=== PATIENT | male | born 1945 | race Caucasian/White ===

== ENCOUNTER 2016-08-01 10:50 | Emergency (ER) | payer OTHER ==
[~2016-08-01] VITALS: Ht 177.8 cm; Wt 122.7 kg
[2016-08-01 11:01] VITALS: TEMP 36.5; Ht 177.8 cm; Wt 122.7 kg
[2016-08-01] MEDS ORDERED: ALBUT/IPRATROP 3MG/0.5MG NEB 3 ML VIAL INH STA (11:13)
[2016-08-01] MEDS ORDERED: METHYLPREDNISOLONE 125 MG VIAL IV STA (11:13)
--- NOTE | 2016-08-01 11:33 | DIAGNOSTIC IMAGING REPORT ---
CHEST ONE VIEW PORTABLE CLINICAL HISTORY: dyspnea COMPARISON STUDY: No previous studies for comparison. FINDINGS: Mild cardiomegaly status post median sternotomy. Lungs are clear. Diaphragms smooth. IMPRESSION: Myocardial megaly. Otherwise negative study Electronically signed by: Brett Cole M.D. 08/01/2016 11:32 AM Dictated Date/Time: 08/01/2016 11:30 AM
--- NOTE | 2016-08-01 11:44 | EMERGENCY ROOM VISIT NOTE ---
History Report prepared by Estevan: Dominga Bedolla Under the Supervision of: Dr. Riley Altamirano M.D. First contact with patient: 11:08 Chief Complaint: CONGESTION Stated Complaint: COLD Nursing Triage Summary: Triage note: pt reports head and chest congestion and shortness of breath for the past 3-4 weeks. Pt reports cough with yellow sputum. pt reports fever and chills. pt reports "i wheeze and what not." pt reports dizziness and nausea upon standing at times. pt reports "my chest hurts all the time for the past 15 years." pt reports "i saw my family dr and they told me i don't have the flu." History of Present Illness The patient is a 71 year old male who presents to the Emergency Room with complaints of a persistent cough starting about 3-4 weeks ago. He also complains of wheezing and some difficulty breathing. He has been having cold- like symptoms for the past 3-4 weeks. The patient increased his oxygen at home from 2 L to 3.5 L without relief. He has a history of COPD. He denies any recent steroids. He had recent contact with someone with RSV. He denies any chest pain, nausea, vomiting, or any other complaints. Source of History: patient Onset: about 3-4 weeks ago Position: other (global) Quality: other (cough) Timing: other (persistent) Associated Symptoms: + SOB, No chest pain, No nausea, No vomiting Review of Systems See HPI for pertinent positives & negatives. A total of 10 systems reviewed and were otherwise negative. Past Medical & Surgical Medical Problems: (1) COPD (chronic obstructive pulmonary disease) (2) Lung disease Family History Patient reports no known family medical history. Social History Smoking Status: Never Smoker Marital Status: Occupation Status: retired Current/Historical Medications Scheduled Albuterol Hfa (Ventolin Hfa), 1 PUFFS INH Q4H Carvedilol (Coreg), 25 MG PO BID Clopidogrel Bisulfate (Plavix), 75 MG PO DAILY Esomeprazole Magnesium (Nexium), 40 MG PO DAILY Finasteride (Proscar), 5 MG PO DAILY Furosemide (Lasix), 40 MG PO DAILY Insulin Isophan/Regular (Novolin 70/30), 40 UNITS SC AMPM Insulin Isophan/Regular (Novolin 70/30), 20 UNITS SC DAILY@1200 Ipratropium-Albuterol (Combivent Respimat), 1 PUFFS INH QID Menthol/Methyl Salicylate (Myoflex), 1 APPLN TOP QID Nitroglycerin (Nitrostat), 0.4 MG UT PRN Nitroglycerin (Nitroglycerin), 1 PATCH TOP DAILY Potassium (Potassium), 1 TAB PO DAILY Pravastatin Sodium (Pravastatin Sodium), 1 TAB PO HS Prednisone (Prednisone), 0 PO DAILY Tamsulosin Hcl (Flomax), 0.4 MG PO PM Temazepam (Restoril), 15 MG PO HS Scheduled PRN Artificial Tear Solution (Artificial Tears), 1 DROPS OPB DAILY PRN for DRYNESS Hydrocodone-Acetaminophen (LORTAB 10-325 mg), 1 TAB PO Q8 PRN for Pain Ibuprofen Tab (Motrin), 800 MG PO Q8H PRN for Pain Ipratropium-Albuterol (Duoneb), 1 TREATMENT INH Q6H PRN for Shortness of Breath Allergies Coded Allergies: Aspirin (Verified Adverse Reaction, Unknown, unknown, 08/01/16) Gabapentin (Verified Adverse Reaction, Unknown, unknown, 08/01/16) Lisinopril (Verified Adverse Reaction, Unknown, unknown, 08/01/16) Methocarbamol (Verified Adverse Reaction, Unknown, unknown, 08/01/16) Warfarin (Verified Adverse Reaction, Unknown, unknown, 08/01/16) Physical Exam Vital Signs Date Time Temp Pulse Resp B/P Pulse Ox O2 Delivery O2 Flow Rate FiO2 08/01/16 14:32 93 20 153/101 91 Room Air 08/01/16 12:45 75 20 131/79 93 Room Air 08/01/16 12:10 72 08/01/16 11:01 36.5 87 22 160/64 93 Room Air Physical Exam CONSTITUTIONAL: Moderate respiratory distress HEENT: No icterus, moist mucous membranes NECK: No meningismus, trachea is midline. CARDIOVASCULAR: Regular rate, normal perfusion RESPIRATORY: Moderate wheezing bilaterally. GASTROINTESTINAL: Non-tender GENITOURINARY: No flank tenderness MUSCULOSKELETAL: Full range of motion NEUROLOGIC: No acute gross focal deficits. PSYCHIATRIC: Normal affect SKIN: Normal for ethnicity. Medical Decision & Procedures ER Provider Diagnostic Interpretation: X-ray results as stated below per interpretation by me and the radiologist. CHEST ONE VIEW PORTABLE CLINICAL HISTORY: dyspnea COMPARISON STUDY: No previous studies for comparison. FINDINGS: Mild cardiomegaly status post median sternotomy. Lungs are clear. Diaphragms smooth. IMPRESSION: Myocardial megaly. Otherwise negative study Electronically signed by: Brett Cole M.D. 08/01/2016 11:32 AM Dictated Date/Time: 08/01/2016 11:30 AM Laboratory Results 08/01/16 11:40 Red Blood Count 3.93, Mean Corpuscular Volume 81.9, Mean Corpuscular Hemoglobin 26.0, Mean Corpuscular Hemoglobin Concent 31.7, Mean Platelet Volume 9.8, Neutrophils (%) (Auto) 70.9, Lymphocytes (%) (Auto) 11.8, Monocytes (%) (Auto) 11.1, Eosinophils (%) (Auto) 5.7, Basophils (%) (Auto) 0.3, Neutrophils # (Auto ) 4.08, Lymphocytes # (Auto) 0.68, Monocytes # (Auto) 0.64, Eosinophils # (Auto ) 0.33, Basophils # (Auto) 0.02 08/01/16 11:40 Test 08/01/16 11:40 White Blood Count 5.76 K/uL (4.8-10.8) Red Blood Count 3.93 M/uL (4.7-6.1) Hemoglobin 10.2 g/dL (14.0-18.0) Hematocrit 32.2 % (42-52) Mean Corpuscular Volume 81.9 fL (80-100) Mean Corpuscular Hemoglobin 26.0 pg (25-34) Mean Corpuscular Hemoglobin Concent 31.7 g/dl (32-36) Platelet Count 166 K/uL (130-400) Mean Platelet Volume 9.8 fL (7.4-10.4) Neutrophils (%) (Auto) 70.9 % Lymphocytes (%) (Auto) 11.8 % Monocytes (%) (Auto) 11.1 % Eosinophils (%) (Auto) 5.7 % Basophils (%) (Auto) 0.3 % Neutrophils # (Auto) 4.08 K/uL (1.4-6.5) Lymphocytes # (Auto) 0.68 K/uL (1.2-3.4) Monocytes # (Auto) 0.64 K/uL (0.11-0.59) Eosinophils # (Auto) 0.33 K/uL (0-0.5) Basophils # (Auto) 0.02 K/uL (0-0.2) RDW Standard Deviation 56.1 fL (36.4-46.3) RDW Coefficient of Variation 18.7 % (11.5-14.5) Immature Granulocyte % (Auto) 0.2 % Immature Granulocyte # (Auto) 0.01 K/uL (0.00-0.02) Anion Gap 11.0 mmol/L (3-11) Est Creatinine Clear Calc Drug Dose 39.9 ml/min Estimated GFR () 33.4 Estimated GFR (Non- 28.9 BUN/Creatinine Ratio 14.4 (10-20) Calcium Level 8.9 mg/dl (8.5-10.1) Troponin I 0.018 ng/ml (0-0.045) Pro-B-Type Natriuretic Peptide 1130 pg/ml (0-900) Labs reviewed by ED physician. Medications Administered Medications (Trade) Dose Ordered Sig/Can Route Start Time Stop Time Status Last Admin Dose Admin Albuterol/ Ipratropium (Duoneb) 6 ml QIDR STAT INH 08/01/16 11:13 08/01/16 11:15 DC 08/01/16 11:38 6 ML Methylprednisolone Sodium Succinate (Solu-Medrol IV) 125 mg NOW STAT IV 08/01/16 11:13 08/01/16 11:15 DC 08/01/16 11:39 125 MG ECG Indication: SOB/dyspnea Rate (beats per minute): 82 Rhythm: other (Narrow complex) Findings: nonspecific-ST abn, other (Artifact; normal axis) ED Course 1108: Past medical records reviewed. The patient was evaluated in room C07. A complete history and physical examination was performed. 1113: Solu-Medrol IV 125 mg IV, DuoNeb 6 ml INH 1456: Upon reexamination the patient is feeling better. I discussed results and treatment plan with the patient. I also discussed renal function and the importance of follow up. [employer]ne[employer] will help arrange follow up with PCP. He verbalizes agreement and understanding. The patient is ready for discharge. Medical Decision Differential diagnosis includes but is not limited to COPD, viral syndrome, pneumonia, wheezing. 71-year-old with history of COPD presented to the emergency room for evaluation of worsening cough and shortness of breath. His home O2 demand vacation 2 L nasal cannula to 3 L nasal cannula over the last few days. He is noted to have marked wheezing bilaterally. He improved after nebulizer treatments and steroids. Renal function noted to be concerning and patient is unaware of baseline. Patient feels better on reexamination and very clearly wants to go home. Impression Primary Impression: COPD exacerbation Scribe Attestation The scribe's documentation has been prepared under my direction and personally reviewed by me in its entirety. I confirm that the note above accurately reflects all work, treatment, procedures, and medical decision making performed by me. Departure Information Dispostion Home / Self-Care Prescriptions Prednisone (Prednisone) 20 Mg Tab 0 PO DAILY, #14 TAB 3 TABS DAILY FOR 2 DAYS, THEN 2 TABS DAILY FOR 2 DAYS, THEN 1 TAB DAILY FOR 2 DAYS, THEN 1/2 TAB DAILY FOR 2 DAYS. Prov: Riley Altamirano MD 08/01/16 Referrals Evelia Pedro M.D. (PCP) Forms HOME CARE DOCUMENTATION FORM, IMPORTANT VISIT INFORMATION Patient Instructions COPD - [facility], My [facility]
[2016-08-01 11:51] LABS: BASO % 0.3 %; BASO ABS # 0.02 K/uL (0-0.2); COMPLETE YES; EOS % 5.7 %; HEMATOCRIT 32.2 % (42-52); IG% 0.2 %; LYMPH % 11.8 %; LYMPH ABS # 0.68 K/uL (1.2-3.4); MEAN CELL VOLUME 81.9 fL (80-100); MEAN CORPUSCULAR HGB CONC 31.7 g/dl (32-36); MEAN PLATELET VOLUME 9.8 fL (7.4-10.4); MONO % 11.1 %; NEUT % 70.9 %; PLATELET COUNT 166 K/uL (130-400); RED BLOOD COUNT 3.93 M/uL (4.7-6.1); WHITE BLOOD COUNT 5.76 K/uL (4.8-10.8)
[2016-08-01 12:07] LABS: BUN/CREATININE RATIO 14.4 (10-20); CALCIUM 8.9 mg/dl (8.5-10.1); CREATININE 2.2 mg/dl (0.60-1.40); POTASSIUM 3.7 mmol/L (3.5-5.1)
[2016-08-01] MEDS ORDERED: TAMS0.4C38 PO (12:12)
[2016-08-01] MEDS ORDERED: IBUP-1451 PO (12:12)
[2016-08-01] MEDS ORDERED: INSU70IN2 SC ×2 (12:12)
[2016-08-01] MEDS ORDERED: TEMA-79 PO (12:12)
[2016-08-01] MEDS ORDERED: CARV25TA PO (12:12)
[2016-08-01] MEDS ORDERED: IPRA1AER2 INH (12:12)
[2016-08-01] MEDS ORDERED: ARTISOL12 OPB (12:12)
[2016-08-01] MEDS ORDERED: FINA5TAB4 PO (12:12)
[2016-08-01] MEDS ORDERED: IPRASOL4 INH (12:12)
[2016-08-01] MEDS ORDERED: FURO40TA3 PO (12:12)
[2016-08-01] MEDS ORDERED: ESCI1TAB18 PO (12:12)
[2016-08-01] MEDS ORDERED: NTRGSL/4 UT (12:12)
[2016-08-01] MEDS ORDERED: VNTHFA/IN INH (12:12)
[2016-08-01] MEDS ORDERED: HYDR-4332 PO (12:12)
[2016-08-01] MEDS ORDERED: CLOP1TAB5 PO (12:12)
[2016-08-01] MEDS ORDERED: NXM/40 PO (12:12)
[2016-08-01] MEDS ORDERED: PRAV40TA2 PO (12:12)
[2016-08-01] MEDS ORDERED: NITR0.4D6 TOP (12:12)
[2016-08-01] MEDS ORDERED: [UNRECOGNIZED DRUG - CODE] TOP (12:12)
[2016-08-01] MEDS ORDERED: POTA99TA PO (12:29)
[2016-08-01 14:32] VITALS: BP 153/101; PULSE 93; O2SAT 91
[2016-08-01] MEDS ORDERED: PRED20TA PO (14:55)
== END 2016-08-01 15:00 | disposition home or self-care (01) ==
LOC: C.EDB 10:54 → C.EDC 15:00
DX: J44.1 Chronic obstructive pulmonary disease with (acute) exacerbation (principal); Z79.4 Long term (current) use of insulin

== ENCOUNTER 2016-10-18 13:20 | Inpatient (IN) | payer OTHER ==
[~2016-10-18] VITALS: Ht 179.1 cm; Wt 111.7 kg
[~2016-10-18 13:20] MED LIST: ARTISOL12 OPB; CARV25TA PO; CLOP1TAB5 PO; FINA5TAB4 PO; FURO40TA3 PO; HYDR-4332 PO; IBUP-1451 PO; INSU70IN2 SC; IPRA1AER2 INH; IPRASOL4 INH; NITR0.4D6 TOP; NTRGSL/4 UT; NXM/40 PO; POTA99TA PO; PRAV40TA2 PO; PRED20TA PO; TAMS0.4C38 PO; TEMA-79 PO; VNTHFA/IN INH; [UNRECOGNIZED DRUG - CODE] TOP
[2016-10-18] MEDS ORDERED: ALBUT/IPRATROP 3MG/0.5MG NEB 3 ML VIAL INH STA (13:42)
[2016-10-18 14:01] LABS: BASO % 0.2 %; BASO ABS # 0.01 K/uL (0-0.2); COMPLETE YES; EOS % 2.1 %; HEMATOCRIT 32.1 % (42-52); LYMPH % 13.7 %; LYMPH ABS # 0.65 K/uL (1.2-3.4); MEAN CELL VOLUME 84.5 fL (80-100); MEAN CORPUSCULAR HEMOGLOBIN 26.3 pg (25-34); MEAN CORPUSCULAR HGB CONC 31.2 g/dl (32-36); MEAN PLATELET VOLUME 9.9 fL (7.4-10.4); PLATELET COUNT 145 K/uL (130-400); WHITE BLOOD COUNT 4.74 K/uL (4.8-10.8)
--- NOTE | 2016-10-18 14:07 | DIAGNOSTIC IMAGING REPORT ---
CHEST ONE VIEW PORTABLE HISTORY: Short of breath. COMPARISON: Chest 08/01/2016. FINDINGS: Stable mild cardiomegaly. Poststernotomy changes. 5 mm nodular density within the right lower lobe remains unchanged. This favors a calcified granuloma. Otherwise, the lungs are clear. No pleural effusions. No pneumothorax. IMPRESSION: No significant change compared to the prior study. No acute process. Stable mild cardiomegaly. Electronically signed by: Christian Hernandez M.D. 10/18/2016 2:05 PM Dictated Date/Time: 10/18/2016 2:04 PM
[2016-10-18 14:16] LABS: INR 1.2 (0.9-1.1)
[2016-10-18 14:24] LABS: BUN/CREATININE RATIO 9.9 (10-20); CREATININE 1.6 mg/dl (0.60-1.40); POTASSIUM 3.3 mmol/L (3.5-5.1)
[2016-10-18] MEDS ORDERED: ONDANSETRON INJ 2 MG/ML 2 ML VIAL IV PRN (17:30)
[2016-10-18] MEDS ORDERED: NITROGLYCERIN 0.4 MG SL PER TAB CHARGE SL PRN (17:30)
[2016-10-18] MEDS ORDERED: ENOXAPARIN 40 MG/0.4 ML SYR SC SCH (17:30)
[2016-10-18] MEDS ORDERED: ACETAMINOPHEN 325 MG TAB PO PRN (17:30)
[2016-10-18] MEDS ORDERED: PNEUMOCOCCAL POLYSACCHARIDES 25 MCG/0.5 ML VIAL/SYR IM. ONE (17:30)
[2016-10-18] MEDS ORDERED: POTASSIUM CHLORIDE 10 MEQ TABCR PO STA (17:43)
[2016-10-18] MEDS ORDERED: HYDROCODONE/ACETAMI 10/325 TAB PO PRN (17:45)
[2016-10-18] MEDS ORDERED: IBUPROFEN 800 MG TAB PO PRN (17:45)
[2016-10-18] MEDS ORDERED: INSULIN HUMAN 70% NPH/30% REGULAR SC SCH (18:00)
[2016-10-18] MEDS ORDERED: POTASSIUM CHLORIDE 10 MEQ TABCR ONE (18:05)
--- NOTE | 2016-10-18 18:13 | History and Physical ---
History & Physical Date & Time of Service: Oct 18, 2016 at 17:10 Chief Complaint: Stomach Filling W/Fluid, Bloated Primary Care Physician: Evelia Pedro M.D. History of Present Illness Source: patient 71 year old male w/ a PMH of cirrhosis, CAD (SD and 2bypass and 3 stents), COPD (4L) at home, Afib (rate controlled), DMT2, HLD, HTN and CKD presented to [facility] on 10/18/2016 with increased abdominal bloating and 20 pound weight gain of 10 days duration. The abdominal swelling started 10 days ago and he has put on 20 pounds in the last 10 days. He has a history of ascites with the last paracentesis being 2 months ago. He feels bloated and he feels short of breath. He said that he also has had worsening in the swelling of his legs which has been improving as his sits with his legs elevated. Along with the abdominal swelling he has had a 2-3 month history of worsening abdominal pain, it is located along the left side of his abdomen and there is nothing that makes it better or makes it worse. He rates this pain as an 8/10 in severity. Associated symptoms include: nausea, shortness of breath and leg swelling, as well as chest pain (central, non radiating, occurs randomly at different times of the day and rates it as a 6/10 in severity. and palpitations Denies any vomiting, fevers, night sweats, chills, cough, leg pain, headaches, diarrhea, constipation Past Medical/Surgical History Medical Problems: (1) COPD (chronic obstructive pulmonary disease) Status: Chronic (2) Heart disease Status: Chronic (2 bypass's, 3 stents and 1 SD) (3) Lung disease Status: Chronic Atrial fibrillation DMT2 HLD HTN Cirrhosis CKD Family History Patient reports no known family medical history. Mother had SD Father had emphysema Sisters have Cancer Brother had SD Social History Smoking Status: Former Smoker (60-90 pack year) Marital Status: Occupational Status: retired Immunizations History of Influenza Vaccine: Unknown Multi-Drug Resistant Organisms History of MDRO: No Allergies Coded Allergies: Aspirin (Verified Adverse Reaction, Unknown, unknown, 10/18/16) Gabapentin (Verified Adverse Reaction, Unknown, unknown, 10/18/16) Lisinopril (Verified Adverse Reaction, Unknown, unknown, 10/18/16) Methocarbamol (Verified Adverse Reaction, Unknown, unknown, 10/18/16) Warfarin (Verified Adverse Reaction, Unknown, unknown, 10/18/16) Home Medications Scheduled Albuterol Hfa (Ventolin Hfa), 1 PUFFS INH Q4H Carvedilol (Coreg), 25 MG PO BID Clopidogrel Bisulfate (Plavix), 75 MG PO DAILY Esomeprazole Magnesium (Nexium), 40 MG PO DAILY Finasteride (Proscar), 5 MG PO DAILY Furosemide (Lasix), 40 MG PO DAILY Insulin Isophan/Regular (Novolin 70/30), 40 UNITS SC AMPM Insulin Isophan/Regular (Novolin 70/30), 20 UNITS SC DAILY@1200 Ipratropium-Albuterol (Combivent Respimat), 1 PUFFS INH QID Menthol/Methyl Salicylate (Myoflex), 1 APPLN TOP QID Nitroglycerin (Nitrostat), 0.4 MG UT PRN Nitroglycerin (Nitroglycerin), 1 PATCH TOP DAILY Potassium (Potassium), 1 TAB PO DAILY Pravastatin Sodium (Pravastatin Sodium), 1 TAB PO HS Tamsulosin Hcl (Flomax), 0.4 MG PO PM Temazepam (Restoril), 15 MG PO HS Scheduled PRN Artificial Tear Solution (Artificial Tears), 1 DROPS OPB DAILY PRN for DRYNESS Hydrocodone-Acetaminophen (LORTAB 10-325 mg), 1 TAB PO Q8 PRN for Pain Ibuprofen Tab (Motrin), 800 MG PO Q8H PRN for Pain Ipratropium-Albuterol (Duoneb), 1 TREATMENT INH Q6H PRN for Shortness of Breath Review of Systems please see HPI for review of systems Constitutional: + fatigue Physical Exam Vital Signs Date Time Temp Pulse Resp B/P Pulse Ox O2 Delivery O2 Flow Rate FiO2 10/18/16 16:32 76 18 150/88 92 Nasal Cannula 2.0 10/18/16 14:55 76 24 118/84 94 Nasal Cannula 2.0 10/18/16 14:37 81 10/18/16 14:10 Nasal Cannula 2.0 10/18/16 13:23 36.4 89 20 149/79 96 Room Air General Appearance: WD/WN, no apparent distress, + obese Respiratory/Chest: chest non-tender, no respiratory distress, no accessory muscle use, + rhonchi (bilateral rhonchi), + wheezing (bilateral wheeze) Cardiovascular: no JVD, no murmur, normal peripheral pulses, + irregularly irregular, + pertinent finding (muffled distant heart sounds) Abdomen/GI: normal bowel sounds, + tenderness (tenderness to palpation throughout abdomen), + distended (grossly) Extremities/Musculoskelatal: normal inspection, normal capillary refill, no pedal edema Neurologic/Psych: alert, normal mood/affect, oriented x 3 Diagnostics Laboratory Results Results Past 24 Hours Test 10/18/16 13:50 Range/Units White Blood Count 4.74 4.8-10.8 K/uL Red Blood Count 3.80 4.7-6.1 M/uL Hemoglobin 10.0 14.0-18.0 g/dL Hematocrit 32.1 42-52 % Mean Corpuscular Volume 84.5 80-100 fL Mean Corpuscular Hemoglobin 26.3 25-34 pg Mean Corpuscular Hemoglobin Concent 31.2 32-36 g/dl Platelet Count 145 130-400 K/uL Mean Platelet Volume 9.9 7.4-10.4 fL Neutrophils (%) (Auto) 73.0 % Lymphocytes (%) (Auto) 13.7 % Monocytes (%) (Auto) 11.0 % Eosinophils (%) (Auto) 2.1 % Basophils (%) (Auto) 0.2 % Neutrophils # (Auto) 3.46 1.4-6.5 K/uL Lymphocytes # (Auto) 0.65 1.2-3.4 K/uL Monocytes # (Auto) 0.52 0.11-0.59 K/uL Eosinophils # (Auto) 0.10 0-0.5 K/uL Basophils # (Auto) 0.01 0-0.2 K/uL RDW Standard Deviation 52.8 36.4-46.3 fL RDW Coefficient of Variation 17.0 11.5-14.5 % Immature Granulocyte % (Auto) 0.0 % Immature Granulocyte # (Auto) 0.00 0.00-0.02 K/uL Prothrombin Time 13.0 9.0-12.0 SECONDS Prothromb Time International Ratio 1.2 0.9-1.1 Activated Partial Thromboplast Time 27.0 21.0-31.0 SECONDS Partial Thromboplastin Ratio 1.0 Sodium Level 145 136-145 mmol/L Potassium Level 3.3 3.5-5.1 mmol/L Chloride Level 105 98-107 mmol/L Carbon Dioxide Level 31 21-32 mmol/L Anion Gap 9.0 3-11 mmol/L Blood Urea Nitrogen 16 7-18 mg/dl Creatinine 1.60 0.60-1.40 mg/dl Est Creatinine Clear Calc Drug Dose 52.8 ml/min Estimated GFR () 49.2 Estimated GFR (Non- 42.4 BUN/Creatinine Ratio 9.9 10-20 Random Glucose 183 70-99 mg/dl Calcium Level 9.0 8.5-10.1 mg/dl Total Bilirubin 1.1 0.2-1 mg/dl Direct Bilirubin 0.6 0-0.2 mg/dl Aspartate Amino Transf (AST/SGOT) 23 15-37 U/L Alanine Aminotransferase (ALT/SGPT) 21 12-78 U/L Alkaline Phosphatase 160 45-117 U/L Troponin I < 0.015 0-0.045 ng/ml Pro-B-Type Natriuretic Peptide 797 0-900 pg/ml Total Protein 8.0 6.4-8.2 gm/dl Albumin 4.1 3.4-5.0 gm/dl Lipase 150 73-393 U/L CXR normal EKG Atrial fibrillation with incomplete RBBB Impression Assessment and Plan 71 year old male with hx of cirrhosis, CAD, COPD, T2DM, HLD, HTN, CKD presented to [facility] with increased swelling of his abdomen Ascites - Sodium restriction with low sodium diet - Furosemide 40mg IV OD - Consider spironolactone once we get charts from outside hospital - Consult GI for therapeutic and diagnostic paracentesis CAD - continue plavix, and coreg - 12 lead EKG ordered - complete Echo ordered - Nitro PRN for chest pain - Has aspirin allergy Afib - rate controlled with coreg - Should discuss NOAC's before discharge - on telemetry COPD - continue duonebs q4 - consider regular maintenance inhaler upon discharge DMT2 - continue 70/30 home regimen with ISS - HbA1c ordered HLD - continue atorvastatin HTN - coreg and lasix BPH - tamsulosin Insomnia - temazepam GERD - pantoprazole and sulcrafate Diet - heart healthy diet and sodium restricted DVT prophylaxis - heparin sub q FULL CODE Obtain results from outside hospital Level of Care Telemetry Resuscitation Status FULL RESUSCITATION VTE Prophylaxis VTE Risk Assessment Done? Y/N: Yes Risk Level: Moderate Given or contraindicated: Unfractionated heparin SQ Social Service Consult None Apply History Resident Physician Supervision Note: I was present with Dr. Alexandre during the history and exam. I discussed the case with the resident and agree with the findings and plan as documented in the note. Any exceptions or clarifications are listed here. Pt seen and examined at bedside. At present, complains of mild left sided abdominal pain and distention similar to a previous episode of ascites which required drainage , except the pain was contralateral. He feels that the swelling in the abdomen is making it difficult to catch his breath, but he hasn't felt increasingly short of breath or wheezy. He has chronic lower extremity edema which he manages with furosemide and elevation and is at baseline. His intermittent substernal chest pain is absent at this time. He reports urinating well but having difficulties with his bowels. Reports no fever, lightheadedness, vomiting , diarrhea, vision/hearing changes, sensation changes, skin changes. General Appearance: WD/WN, no apparent distress Respiratory: chest non-tender, no respiratory distress, decreased breath sounds (throughout), wheezing (light, scattered wheezing) Cardiovascular: normal peripheral pulses, regular rate, rhythm, other (trace edema of the b/l extremities) Gastrointestinal: normal bowel sounds, distended, tenderness (mild L sided abd TTP) Neurologic/Psychiatric: alert, normal mood/affect, oriented x 3 Skin Characteristics: normal color, warm/dry Assessment/Plan 71 y/o male w/ h/o cirrhosis requiring centesis, COPD, DMII, HTN, CKD, CAD p/w ascites Ascites - last issue was in Jul requiring tap with benefit - c/s GI - furosemide IV - t/c spironolactone - trend CMP COPD - per patient, does not have any maintenance inhaler but is on 4L O2 at home at baseline - check w/ PCP re: trial of advair/flovent - Duonebs Atypical chest pain and swelling in the setting of CAD hx w/ stent placement - trend troponins - repeat EKG in AM - repeat echocardiogram - continue plavix and coreg Atrial fibrillation - continue coreg, presently w/o AC DMII - on 70/30 at home without apparent meal coverage - obtain A1c for general control - restart home regimen for now but would prefer transition to basal/bolus HLD - continue atorvastatin HTN - coreg and lasix BPH - tamsulosin Insomnia - temazepam GERD - continue pantoprazole, add sucralfate as may be contributing to chest pain DVT PPX - Heparin FULL CODE
[2016-10-18 18:21] VITALS: BP 157/88; PULSE 86; TEMP 36.7; O2SAT 93; Ht 179.1 cm; Wt 111.7 kg
--- NOTE | 2016-10-18 18:59 | EMERGENCY ROOM VISIT NOTE ---
History Report prepared by Estevan: Carmela Chong Under the Supervision of: Dr. Aime Evans M.D. First contact with patient: 13:33 Chief Complaint: ABDOMINAL PAIN Stated Complaint: STOMACH FILLING W/FLUID, BLOATED History of Present Illness The patient is a 71 year old male who presents to the Emergency Room with complaints of worsening abdominal pain beginning 10 days prior to arrival. The patient states that he has a history of ascites requiring paracentesis with the last time being 2 months ago. He notes that he feels very bloated. The patient has gained 20 pounds in the last 10 days. He is also experiencing shortness of breath. He does have chronic swelling to his lower extremities. He is on Lasix. He states the swelling to his legs is under control after sitting up with his legs on the recliner. The patient notes occasional chest pain that has been occurring more frequently this past week. He experienced this chest pain last night and describes it as a sharp pain. A nitro patch did help to alleviate the pain. He has had no chest pain today. The chest pain is unchanged from the chest pain he normally gets from his heart disease. The patient denies fever, cough or rhinorrhea. He has a history of liver cirrhosis, heart disease, and COPD. The patient does wear oxygen at home. 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 A total of 10 systems reviewed and were otherwise negative. Past Medical & Surgical Medical Problems: (1) Ascites due to alcoholic cirrhosis (2) COPD (chronic obstructive pulmonary disease) (3) Heart disease (4) Lung disease Family History Patient reports no known family medical history. Social History Smoking Status: Former Smoker Marital Status: Occupation Status: retired Current/Historical Medications Scheduled Albuterol Hfa (Ventolin Hfa), 1 PUFFS INH Q4H Carvedilol (Coreg), 25 MG PO BID Clopidogrel Bisulfate (Plavix), 75 MG PO DAILY Esomeprazole Magnesium (Nexium), 40 MG PO DAILY Finasteride (Proscar), 5 MG PO DAILY Furosemide (Lasix), 40 MG PO DAILY Insulin Isophan/Regular (Novolin 70/30), 40 UNITS SC AMPM Insulin Isophan/Regular (Novolin 70/30), 20 UNITS SC DAILY@1200 Ipratropium-Albuterol (Combivent Respimat), 1 PUFFS INH QID Menthol/Methyl Salicylate (Myoflex), 1 APPLN TOP QID Nitroglycerin (Nitrostat), 0.4 MG UT PRN Nitroglycerin (Nitroglycerin), 1 PATCH TOP DAILY Potassium (Potassium), 1 TAB PO DAILY Pravastatin Sodium (Pravastatin Sodium), 1 TAB PO HS Tamsulosin Hcl (Flomax), 0.4 MG PO PM Temazepam (Restoril), 15 MG PO HS Scheduled PRN Artificial Tear Solution (Artificial Tears), 1 DROPS OPB DAILY PRN for DRYNESS Hydrocodone-Acetaminophen (LORTAB 10-325 mg), 1 TAB PO Q8 PRN for Pain Ibuprofen Tab (Motrin), 800 MG PO Q8H PRN for Pain Ipratropium-Albuterol (Duoneb), 1 TREATMENT INH Q6H PRN for Shortness of Breath Allergies Coded Allergies: Aspirin (Verified Adverse Reaction, Unknown, unknown, 10/18/16) Gabapentin (Verified Adverse Reaction, Unknown, unknown, 10/18/16) Lisinopril (Verified Adverse Reaction, Unknown, unknown, 10/18/16) Methocarbamol (Verified Adverse Reaction, Unknown, unknown, 10/18/16) Warfarin (Verified Adverse Reaction, Unknown, unknown, 10/18/16) Physical Exam Vital Signs Date Time Temp Pulse Resp B/P Pulse Ox O2 Delivery O2 Flow Rate FiO2 10/18/16 18:21 36.7 86 16 157/88 93 Room Air 10/18/16 18:03 74 20 127/82 98 Nasal Cannula 2.0 10/18/16 16:32 76 18 150/88 92 Nasal Cannula 2.0 10/18/16 14:55 76 24 118/84 94 Nasal Cannula 2.0 10/18/16 14:37 81 10/18/16 14:10 Nasal Cannula 2.0 10/18/16 13:23 36.4 89 20 149/79 96 Room Air Physical Exam Constitutional: Vital signs reviewed. Eyes: Pupils are equal round reactive to light. Conjunctiva are noninjected. ENT: Pharynx is clear without erythema or exudate. Mucous membranes are moist. Neck supple without meningeal signs. Respiratory: Scattered wheezes bilaterally. Breath sounds are equal bilaterally. Cardiovascular: Regular rate and rhythm. No rubs or gallops. GI: Distended abdomen with minimal diffuse tenderness. Bowel sounds are present. Musculoskeletal: No peripheral edema. No lower extremity tenderness. Integumentary: No cyanosis. Neurological: The patient is awake and alert. No focal deficits. Psychiatric: Normal affect. Medical Decision & Procedures ER Provider Diagnostic Interpretation: X-ray results as stated below per interpretation by me and the radiologist: CHEST ONE VIEW PORTABLE HISTORY: Short of breath. COMPARISON: Chest 08/01/2016. FINDINGS: Stable mild cardiomegaly. Poststernotomy changes. 5 mm nodular density within the right lower lobe remains unchanged. This favors a calcified granuloma. Otherwise, the lungs are clear. No pleural effusions. No pneumothorax. IMPRESSION: No significant change compared to the prior study. No acute process. Stable mild cardiomegaly. Electronically signed by: Christian Hernandez M.D. 10/18/2016 2:05 PM Dictated Date/Time: 10/18/2016 2:04 PM Laboratory Results 10/18/16 13:50 Red Blood Count 3.80, Mean Corpuscular Volume 84.5, Mean Corpuscular Hemoglobin 26.3, Mean Corpuscular Hemoglobin Concent 31.2, Mean Platelet Volume 9.9, Neutrophils (%) (Auto) 73.0, Lymphocytes (%) (Auto) 13.7, Monocytes (%) (Auto) 11.0, Eosinophils (%) (Auto) 2.1, Basophils (%) (Auto) 0.2, Neutrophils # (Auto ) 3.46, Lymphocytes # (Auto) 0.65, Monocytes # (Auto) 0.52, Eosinophils # (Auto ) 0.10, Basophils # (Auto) 0.01 10/18/16 13:50 Test 10/18/16 13:50 White Blood Count 4.74 K/uL (4.8-10.8) Red Blood Count 3.80 M/uL (4.7-6.1) Hemoglobin 10.0 g/dL (14.0-18.0) Hematocrit 32.1 % (42-52) Mean Corpuscular Volume 84.5 fL (80-100) Mean Corpuscular Hemoglobin 26.3 pg (25-34) Mean Corpuscular Hemoglobin Concent 31.2 g/dl (32-36) Platelet Count 145 K/uL (130-400) Mean Platelet Volume 9.9 fL (7.4-10.4) Neutrophils (%) (Auto) 73.0 % Lymphocytes (%) (Auto) 13.7 % Monocytes (%) (Auto) 11.0 % Eosinophils (%) (Auto) 2.1 % Basophils (%) (Auto) 0.2 % Neutrophils # (Auto) 3.46 K/uL (1.4-6.5) Lymphocytes # (Auto) 0.65 K/uL (1.2-3.4) Monocytes # (Auto) 0.52 K/uL (0.11-0.59) Eosinophils # (Auto) 0.10 K/uL (0-0.5) Basophils # (Auto) 0.01 K/uL (0-0.2) RDW Standard Deviation 52.8 fL (36.4-46.3) RDW Coefficient of Variation 17.0 % (11.5-14.5) Immature Granulocyte % (Auto) 0.0 % Immature Granulocyte # (Auto) 0.00 K/uL (0.00-0.02) Prothrombin Time 13.0 SECONDS (9.0-12.0) Prothromb Time International Ratio 1.2 (0.9-1.1) Activated Partial Thromboplast Time 27.0 SECONDS (21.0-31.0) Partial Thromboplastin Ratio 1.0 Anion Gap 9.0 mmol/L (3-11) Est Creatinine Clear Calc Drug Dose 52.8 ml/min Estimated GFR () 49.2 Estimated GFR (Non- 42.4 BUN/Creatinine Ratio 9.9 (10-20) Calcium Level 9.0 mg/dl (8.5-10.1) Total Bilirubin 1.1 mg/dl (0.2-1) Direct Bilirubin 0.6 mg/dl (0-0.2) Aspartate Amino Transf (AST/SGOT) 23 U/L (15-37) Alanine Aminotransferase (ALT/SGPT) 21 U/L (12-78) Alkaline Phosphatase 160 U/L (45-117) Troponin I < 0.015 ng/ml (0-0.045) Pro-B-Type Natriuretic Peptide 797 pg/ml (0-900) Total Protein 8.0 gm/dl (6.4-8.2) Albumin 4.1 gm/dl (3.4-5.0) Lipase 150 U/L (73-393) Laboratory results as reviewed by me. Medications Administered Medications (Trade) Dose Ordered Sig/Can Route Start Time Stop Time Status Last Admin Dose Admin Albuterol/ Ipratropium (Duoneb) 3 ml NOW STAT INH 10/18/16 13:42 10/18/16 13:44 DC 10/18/16 14:06 3 ML Potassium Chloride (Klor-Con M10) 10 meq STK-MED ONCE .ROUTE 10/18/16 18:05 10/18/16 18:06 DC 10/18/16 18:07 10 MEQ ECG Indication: abdominal pain, chest pain Rate (beats per minute): 85 Rhythm: atrial fibrillation Findings: no acute ischemic change, other (QRS 136 miliseconds) ED Course 1335: The patient was evaluated in room C11. A complete history and physical exam was performed. 1342: Duoneb 3 ml INH. 1441: I reevaluated the patient. I discussed test results with the patient. He has no wheezing on lung exam after Duoneb. 1550: I spoke with Dr. Villegas of [facility] [place] We discussed the patient and his results. The patient will be further evaluated by Dr. Villegas - [facility] [place]. Medical Decision This is a 71-year-old male who presents with swelling to his belly and difficulty breathing. Differential diagnosis includes CHF, pulmonary edema, COPD exacerbation, ascites, cirrhosis. I did perform a limited focused review of portions of the patient's old chart on the electronic medical record. The patient was seen in July for COPD exacerbation. I did evaluate the patient as noted above. The patient is presenting with increased difficulty breathing which she attributes to the increased girth in his abdomen. He does have a history of cirrhosis and ascites requiring paracentesis. He also describes increased anginal chest pain over the past week. He states it feels like his prior angina but it is becoming more frequent at rest. He last had chest pain yesterday. He is also wheezing on examination and has a history of COPD. I did treat him with a DuoNeb. IV access was established. The patient was placed on a continuous personnel monitor. I did order and personally review the patient's 12-lead EKG and chest x-ray as described above. I did order and review the patient's blood work as noted in the electronic medical record. Troponin is negative. BNP is not elevated. I did reassess the patient. He is feeling slightly better and has no wheezing on examination. He feels he needs paracentesis. I did discuss the case with the hospitalist and watch caser for further evaluation in the hospital. Consults Time Called: 1548 Consulting Physician: Dr. Nelly NUR Returned Call: [address] Villegas of [facility] [place]. We discussed the patient and his results. The patient will be further evaluated by Dr. Nelly NUR. Impression Primary Impression: Ascites Additional Impressions: Acute chest pain Anemia Creatinine elevation Scribe Attestation The scribe's documentation has been prepared under my direct and personally reviewed by me in its entirety. I confirm that the note above accurately reflects all work, treatment, procedures, and medical decision making performed by me. Departure Information Dispostion Being Evaluated By Hospitalist Referrals No Doctor, Assigned (PCP) Problem Qualifiers Primary Impression: Ascites Ascites type: other type Qualified Codes: R18.8 - Other ascites Additional Impressions: Anemia Anemia type: unspecified type Qualified Codes: D64.9 - Anemia, unspecified
[2016-10-18] MEDS ORDERED: FUROSEMIDE 40 MG/4 ML VIAL IV SCH (19:45)
[2016-10-18] MEDS ORDERED: ALBUT/IPRATROP 3MG/0.5MG NEB 3 ML VIAL INH SCH (20:00)
[2016-10-18] MEDS ORDERED: HEPARIN SOD 5000 UNIT/0.5 ML CARP SQ SCH (21:00)
[2016-10-18] MEDS ORDERED: PRAVASTATIN SOD 40 MG TAB PO SCH (21:00)
[2016-10-18] MEDS ORDERED: INSULIN ASPART 100 UNITS/ML 3 ML PEN SC SCH (21:00)
[2016-10-18] MEDS ORDERED: CARVEDILOL 25 MG TAB PO SCH (21:00)
[2016-10-18] MEDS ORDERED: TEMAZEPAM 15 MG CAP PO SCH (21:00)
[2016-10-18] MEDS ORDERED: SUCRALFATE 1 GM TAB PO SCH (21:00)
[2016-10-18] MEDS ORDERED: TAMSULOSIN HCL 0.4 MG CAP PO SCH (21:00)
[2016-10-19] MEDS ORDERED: CLOPIDOGREL BISULFATE 75 MG TAB PO SCH (09:00)
[2016-10-19] MEDS ORDERED: PANTOprazole SOD 40 MG TAB PO SCH (09:00)
[2016-10-19] MEDS ORDERED: FUROSEMIDE INJ 40 MG in SYRINGE 0 ML IV SCH (09:00)
[2016-10-19] MEDS ORDERED: POTASSIUM CHLORIDE 20 MEQ TABCR PO SCH (09:00)
[2016-10-19] MEDS ORDERED: FINASTERIDE 5 MG TAB PO SCH (09:00)
[2016-10-19] MEDS ORDERED: INSULIN HUMAN 70% NPH/30% REGULAR SC SCH (12:00)
--- NOTE | 2016-11-01 19:54 | Discharge Instructions ---
Discharge Instructions Date of Service November 01, 2016. Admission Reason for Admission: Ascites Due To Alcoholic Cirrhosis Discharge Discharge Diagnosis / Problem: Ascites Discharge Goals Goal(s): Decrease discomfort, Improve function Activity Recommendations Activity Limitations: resume your previous activity . 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 Current Hospital Diet Patient's current hospital diet: Regular Diet, Diabetes Type 2 Diet, AHA Diet ( Heart Healthy), Low Sodium Diet (2gm Na) Discharge Diet Recommended Diet: AHA Diet (Heart Healthy), Low Sodium Diet (2gm Na) Fluid Restriction: 1000 ml (4 cups) Pending Studies Studies pending at discharge: no Medical Emergencies . Who to Call and When: Medical Emergencies: If at any time you feel your situation is an emergency, please call 911 immediately. . Non-Emergent Contact Non-Emergency issues call your: Primary Care Provider Call Non-Emergent contact if: you have a fever, temperature is above 100.5, your pain is not controlled, your pain is worsening, your pain is unusual for you . . "Provider Documentation" section prepared by Aamir Santo. . VTE Core Measure Inpt VTE Proph given/why not?: Unfractionated heparin SQ
--- NOTE | 2016-11-01 20:00 | Discharge Summary ---
Discharge Summary Date of Service November 01, 2016. Discharge Summary Admission Date: Oct 18, 2016 at 17:32 Discharge Date: Oct 19, 2016 Discharge Disposition: Home Principal Diagnosis: Ascites Problems/Secondary Diagnoses: cirrhosis, CAD (PR and 2bypass and 3 stents), COPD (4L) at home, Afib (rate controlled), DMT2, HLD, HTN and CKD presented to [facility] on 10/18/2016 with increased abdominal bloating and 20 pound weight gain of 10 days duration. Immunizations: Have You Had Influenza Vaccine: Unknown Medication Reconciliation Continued Medications: Albuterol Hfa (Ventolin Hfa) 200 Puffs/89571 Mcg Aers 1 PUFFS INH Q4H for Shortness of Breath, #1 INHALER Artificial Tear Solution (Artificial Tears) 1 Marni Marni 1 DROPS OPB DAILY PRN for DRYNESS, #15 ML 5 Refills Carvedilol (Coreg) 25 Mg Tab 25 MG PO BID, TAB Clopidogrel Bisulfate (Plavix) 75 Mg Tab 75 MG PO DAILY, TAB Esomeprazole Magnesium (Nexium) 40 Mg Capcr 40 MG PO DAILY, CAP Finasteride (Proscar) 5 Mg Tab 5 MG PO DAILY, TAB Furosemide (Lasix) 40 Mg Tab 40 MG PO DAILY, TAB Hydrocodone-Acetaminophen (LORTAB 10-325 mg) 1 Tab Tab 1 TAB PO Q8 PRN for Pain Insulin Isophan/Regular (Novolin 70/30) Susp 40 UNITS SC AMPM, BTL Insulin Isophan/Regular (Novolin 70/30) Susp 20 UNITS SC DAILY@1200, BTL Ipratropium-Albuterol (Duoneb) 3 Ml Nebu 1 TREATMENT INH Q6H PRN for Shortness of Breath, INHA Ipratropium-Albuterol (Combivent Respimat) 1 Aer Aer 1 PUFFS INH QID, INH Menthol/Methyl Salicylate (Myoflex) 57 Gm Cr 1 APPLN TOP QID Nitroglycerin (Nitrostat) 0.4 Mg Tab 0.4 MG UT PRN, BTL Nitroglycerin (Nitroglycerin) 0.4 Mg/Hr Dis 1 PATCH TOP DAILY Potassium (Potassium) 99 Mg Tab 1 TAB PO DAILY Pravastatin Sodium (Pravastatin Sodium) 40 Mg Tab 1 TAB PO HS for 90 Days, #90 TAB 3 Refills Tamsulosin Hcl (Flomax) 0.4 Mg Cap 0.4 MG PO PM, CAP Temazepam (Restoril) 15 Mg Cap 15 MG PO HS, CAP Discontinued Medications: Ibuprofen Tab (Motrin) 800 Mg Tab 800 MG PO Q8H PRN for Pain, TAB Discharge Exam Patient left the hospital in the night against medical advice without further treatment or care. Hospital Course 71 y/o male w/ h/o cirrhosis requiring centesis, COPD, DMII, HTN, CKD, CAD p/w ascites Ascites - last issue was in Feb requiring tap with benefit - gastroenterology was consulted but was unable to assess the patient 2/2 left AMA, mild diuresis was provided to alleviate symptoms prior to therapeutic paracentesis COPD - per patient, does not have any maintenance inhaler but is on 4L O2 at home at baseline - would strongly recommend f/u with PCP regarding chronic COPD management Atypical chest pain and swelling in the setting of CAD hx w/ stent placement - the patient had troponins done in hospital, but left prior to completion of the evaluation. A repeat echocardiogram was ordered but not completed. Atrial fibrillation - continue coreg, presently w/o AC DMII - on 70/30 at home without apparent meal coverage HLD - continue atorvastatin HTN - resume home medications BPH - tamsulosin Insomnia - temazepam GERD - continue pantoprazole, would recommend addition of sucralfate as may be contributing to chest pain FULL CODE Total Time Spent: Less than 30 minutes This includes examination of the patient, discharge planning, medication reconciliation, and communication with other providers. Discharge Instructions Please refer to the electronic Patient Visit Report (Discharge Instructions) for additional information.
== END 2016-10-18 20:03 | disposition left against medical advice (07) | DRG 434 ==
LOC: ENRESERVDT → ENRESERVTM → C.EDB 13:22 → C.2T 17:32
PROVIDERS: ADMIT Family Medicine; ATTEND Family Medicine
DX: K70.31 Alcoholic cirrhosis of liver with ascites (principal); R07.89 Other chest pain; D64.9 Anemia, unspecified; J44.9 Chronic obstructive pulmonary disease, unspecified; I25.10 Atherosclerotic heart disease of native coronary artery without angina pectoris; I25.2 Old myocardial infarction; E11.9 Type 2 diabetes mellitus without complications; E78.5 Hyperlipidemia, unspecified; I48.91 Unspecified atrial fibrillation; N18.9 Chronic kidney disease, unspecified; I12.9 Hypertensive chronic kidney disease with stage 1 through stage 4 chronic kidney disease, or unspecified chronic kidney disease; N40.0 Benign prostatic hyperplasia without lower urinary tract symptoms; G47.00 Insomnia, unspecified; K21.9 Gastro-esophageal reflux disease without esophagitis; E66.9 Obesity, unspecified; Z51.81 Encounter for therapeutic drug level monitoring; Z79.899 Other long term (current) drug therapy; Z79.4 Long term (current) use of insulin; Z79.02 Long term (current) use of antithrombotics/antiplatelets; Z95.1 Presence of aortocoronary bypass graft; Z68.34 Body mass index [BMI] 34.0-34.9, adult; Z95.5 Presence of coronary angioplasty implant and graft; Z87.891 Personal history of nicotine dependence; Z82.49 Family history of ischemic heart disease and other diseases of the circulatory system; Z83.6 Family history of other diseases of the respiratory system